=== PATIENT | female | born 1980 | race Caucasian/White ===

== ENCOUNTER 2020-05-22 14:59 | Emergency (ER) | payer MEDICAID, SELFPAY ==
[2020-05-22 15:01] VITALS: BP 118/65; PULSE 87; RESP 14; O2SAT 99
--- NOTE | 2020-05-22 15:37 | W.ED.GENAD ---
Discharge Plan Disposition Patient Disposition: HOME Condition: Good Discharge Details Chief Complaint: EarProblem Clinical Impression: Left otitis externa Primary Care Provider: Unknown,Unknown ED Provider: Skip Del Cid Home Meds and New Rx's Prescriptions: New Ciprodex 0.3-0.1 % drops,suspension 4 drp OT BID Qty: 7.5 RF: 0 levofloxacin [Levaquin] 750 mg tablet 750 mg PO DAILY 3 Days Qty: 3 RF: 0 Continued Vyvanse 70 mg Capsule 70 mg PO DAILY RF: 0 Discharge Instructions Instructions: Otitis Externa (ED) Additional Instructions: At this time he still have otitis externa but did not demonstrate any evidence of mastoiditis meningitis or other concerning etiology. Please continue to take Tylenol and ibuprofen as needed for pain. Please continue to use the Ciprodex drops, 4 drops to the affected ear twice daily. Please continue to take your Levaquin and take the additional 3 days that have been prescribed once you finish your original prescription. Please follow-up closely with your practice billing associate and primary care provider. If you notice any worsening of your symptoms, or any new symptoms such as pain in the bone behind your ear, stiff neck, vomiting, diarrhea, fever, chills, shortness of breath, chest pain, numbness, weakness, or fainting , please return immediately to the emergency department for reevaluation. Please follow up with your primary care provider as soon as possible for reassessment and reevaluation. As always, it was a pleasure participating in your medical care today. 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 Over 4 days ago she had spent some time swimming and in a hot tub, she developed a left-sided otitis externa, she was seen by her physician at her allergy center, who prescribed oral Levaquin and Ciprodex for topical treatment. She has been taking this for the last 4 days and has noted an improvement in the pain and swelling. She initially did have a fever but this is resolved. The pain is now notably tolerable especially with Tylenol and Aleve. Symptoms, although still present, are notably diminished from before. She did contact her PCP via a digital call, and it was recommended that she be evaluated in person for reassessment. Patient has no other complaints at this time. She denies headache posterior neck pain current fever chills chest pain or shortness of breath. She does admit to decreased hearing in the left ear. Physical exam demonstrates mild otitis externa, unable to visualize tympanic membrane secondary to swelling, no swelling of the ear, proptosis of the ear, signs of meningitis, or signs of mastoiditis. Signs and symptoms appear consistent with notably improving otitis externa. No indication for change in antibiotic treatment. Will give repeat bottle of Ciprodex, as well as 3 additional days of Levaquin. Discussed the importance of PCP follow-up. Discussed red flags which to return. With a clear demonstration of improvement of her symptoms with the current treatment modality no indication for change in treatment modality now. I have extensively reviewed the treatment plan and discharge instructions with the patient. I have addressed all patient concerns at this time. The patient was made aware of what symptoms to monitor for that would warrant a return to the emergency department. Discussed the plan with the patient, they demonstrate verbal understanding and agreement with our assessment and plan at this time. HPI General Date/Time Provider Initiated Documentation: 05/22/20 15:21. 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 Over 4 days ago she had spent some time swimming and in a hot tub, she developed a left-sided otitis externa, she was seen by her physician at her allergy center, who prescribed oral Levaquin and Ciprodex for topical treatment. She has been taking this for the last 4 days and has noted an improvement in the pain and swelling. She initially did have a fever but this is resolved. The pain is now notably tolerable especially with Tylenol and Aleve. Symptoms, although still present, are notably diminished from before. She did contact her PCP via a digital call, and it was recommended that she be evaluated in person for reassessment. Patient has no other complaints at this time. She denies headache posterior neck pain current fever chills chest pain or shortness of breath. She does admit to decreased hearing in the left ear. Related Data Home Medications Medication Instructions Recorded Confirmed Vyvanse 70 mg PO DAILY 05/22/20 05/22/20 ciprofloxacin-dexamethasone 4 drp OT BID #7.5 ml 05/22/20 [Ciprodex] levofloxacin [Levaquin] 750 mg PO DAILY 3 Days #3 tab 05/22/20 Previous Rx's Medication Instructions Recorded ciprofloxacin-dexamethasone 4 drp OT BID #7.5 ml 05/22/20 [Ciprodex] levofloxacin [Levaquin] 750 mg PO DAILY 3 Days #3 tab 05/22/20 Allergies Allergy/AdvReac Type Severity Reaction Status Date / Time amoxicillin Allergy Unverified 05/22/20 15:13 cefdinir Allergy Unverified 05/22/20 15:13 General Stated Complaint: EarProblem VISH: 4 Review of Systems All systems reviewed & are unremarkable except as noted in HPI and below PFSH Social History Smoking/Tobacco Use Status: Never Alcohol Intake: current Alcohol Intake frequency: 0-2 drinks per day Drug use: Never Substance use type: does not use Do you feel safe at home: Yes Do you feel safe in your relationship?: Yes Exam Narrative Exam Narrative: 1.Const: Well-nourished, Well-developed, appearing stated age 2.Eyes: PERRL, no conjunctival injection, and symmetrical lids. 3.ENT: Atraumatic external nose and ears. Moist MM. Neck: Symmetric, trachea midline, No thyromegaly. Patient demonstrates good movement of cervical neck. There is no nuchal rigidity, no nuchal tenderness. Patient is able to flex the neck without any difficulty or significant pain. Negative Kernig's and Brudzinski sign. Patient's right ear is normal, left ear demonstrates swelling of the external auditory canal, no swelling of the ear, no external rotation of the ear, no tenderness over the mastoid process, minimal tenderness on palpation of the tragus, no pain on palpation of the auricle. The external canal does demonstrate some goopy discharge. No blood. 4.CVS: +S1/S2, No murmurs or gallops. Peripheral pulses 2+ and equal in all extremities. Brisk capillary refill in all extremities. 5.RESP: Unlabored respiratory effort. Clear to auscultation bilaterally. No wheezes rales or rhonchi 6.GI: Soft, Nontender/Nondistended, No hepatosplenomegaly. No guarding or rebound. 7.MSK: Normocephalic/Atraumatic, Extremities w/o deformity or ttp No cyanosis or clubbing, Normal movement of all extremities 8.Skin: Warm, Dry. No rashes or lesions. 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 Sensation grossly intact, no focal neurologic deficits. 10.Psych: (AAO) x3. Appropriate mood and affect Course Vital Signs Vital signs: Vital Signs Pulse 87 05/22/20 15:01 Respiratory Rate 14 05/22/20 15:01 Blood Pressure 118/65 05/22/20 15:01 Pulse Oximetry 99 05/22/20 15:01 Pulse 87 05/22/20 15:01 Respiratory Rate 14 05/22/20 15:01 Respiratory Effort Non-Labored 05/22/20 15:16 Blood Pressure 118/65 05/22/20 15:01 Blood Pressure Position Sitting 05/22/20 15:01 Pulse Oximetry 99 05/22/20 15:01 Oxygen Delivery Method Room Air 05/22/20 15:01 Oxygen Flow Rate 0 05/22/20 15:01 Pain Level 5 05/22/20 15:16
[2020-05-22 15:51] VITALS: BP 102/59; PULSE 85; RESP 14; TEMP 36.8; O2SAT 100
== END 2020-05-22 16:03 | disposition home or self-care (01) ==
LOC: ER 16:04
PROVIDERS: Emergency Provider Student in an Organized Health Care Education/Training Program
DX: H60.332 Swimmer's ear, left ear (principal)
CPT/HCPCS: 99283

== ENCOUNTER 2020-07-14 10:41 | Outpatient (CLI) | payer MEDICAID, SELFPAY ==
[2020-07-17 12:41] LABS: Patient Race White; SARS-CoV-2 RNA Undetected (Undetected); SARS-CoV-2 Specimen Source Nasal
== END 2020-07-14 11:01 ==
PROVIDERS: PCP Internal Medicine; Visit Provider Internal Medicine
DX: Z20.828 Contact with and (suspected) exposure to other viral communicable diseases (principal)
CPT/HCPCS: U0003

== ENCOUNTER 2020-09-10 02:58 | Outpatient (CLI) | payer MEDICAID, SELFPAY ==
[2020-09-11 18:47] LABS: COVID-19 RT-PCR UVMMC Result Negative (Negative)
== END 2020-09-10 03:18 ==
PROVIDERS: PCP Internal Medicine; Visit Provider Obstetrics & Gynecology
DX: Z11.59 Encounter for screening for other viral diseases (principal); Z01.818 Encounter for other preprocedural examination
CPT/HCPCS: U0003

== ENCOUNTER 2021-01-15 10:00 | Outpatient (REF) | payer MEDICAID, SELFPAY ==
--- NOTE | 2021-01-15 09:30 | PAPFT_PTH ---
PATIENT: Emeli Ness LOC: [facility] U#:[id number] AGE/SX: 40/F ROOM: RE01/15/[address]: Olimpia Pineda : 1980 BED: DIS: 01/15/2021 SPEC #: [id number] RECD: 01/15/21 12:53 STATUS: WALTER RELuis Alfredo #: [id number] BROCK: 01/15/21 09:[address]: Olimpia Pineda DEPT: [facility] Cytology RECD BY: Deisy Nguyen ENTERED: 01/15/21 12:54 SP TYPE: PAPFT OTHR DR: Alexus Pinedo Tissues: 1 - CX/ENDOCX FOR PAP SMEARS Procedures: PAP THIN PREP/UVM Screening HPV DNA PROBE Comments: [id number]
[2021-01-16 14:54] LABS: Chlamydia Result Negative (Negative); GC Result Negative (Negative)
== END 2021-01-15 10:01 | disposition home or self-care (01) ==
LOC: LBN 10:00
PROVIDERS: PCP Internal Medicine; Visit Provider Obstetrics & Gynecology Gynecology
DX: Z11.3 Encounter for screening for infections with a predominantly sexual mode of transmission (principal); Z12.4 Encounter for screening for malignant neoplasm of cervix; Z11.51 Encounter for screening for human papillomavirus (HPV)
CPT/HCPCS: 87491; 87591; 88142; 87624

== ENCOUNTER 2021-03-15 15:29 | Emergency (ER) | payer MEDICAID, SELFPAY | END 2021-03-15 15:48 | disposition LWBS | LOC: ER 15:56 | DX: Z53.21 Procedure and treatment not carried out due to patient leaving prior to being seen by health care provider (principal) ==

== ENCOUNTER 2021-08-20 02:37 | Outpatient (CLI) | payer MEDICAID, SELFPAY ==
[2021-08-20 10:59] LABS: Bilirubin Negative (Negative); Blood Negative (Negative); Clarity Cloudy (Clear); Glucose Negative (Negative); Ketones Negative (Negative); Leukocyte Esterase Negative (Negative); Nitrite Negative (Negative); Urobilinogen 0.2 EU/dL (Up TO 0.2); pH 8.5 (5-8)
[2021-08-20 12:07] LABS: Creatine Kinase 112 U/L (26-192)
[2021-08-20 12:12] LABS: C-Reactive Protein < 0.05 mg/dL (0.0-0.3)
[2021-08-21 18:01] LABS: Rheumatoid Factor <8.6 IU/mL (<12.0)
[2021-08-22 11:39] LABS: Scl 70 Antibodies, IgG <0.2 U
[2021-08-24 09:12] LABS: Cyclic Citrullinated Peptide <2.5 U/mL (<5.0)
[2021-08-24 15:53] LABS: ANA Interpretation Negative (Negative)
== END 2021-08-20 02:38 | disposition home or self-care (01) ==
LOC: LBO 02:38
DX: I73.00 Raynaud's syndrome without gangrene (principal); M25.50 Pain in unspecified joint
CPT/HCPCS: 36415; 82550; 86200; 81003; 86038; 86140; 86235; 86431

== ENCOUNTER 2021-08-25 12:39 | Outpatient (CLI) | payer MEDICAID, SELFPAY ==
[2021-08-27 13:40] LABS: RNP Ab, IgG 0.8 Units (<20.0); SS-A Antibody 0.8 Units (<20.0); Sm (Smith) Ab, IgG 0.7 Units (<20.0)
== END 2021-08-25 12:40 | disposition home or self-care (01) ==
LOC: LBO 12:39
PROVIDERS: Visit Provider Student in an Organized Health Care Education/Training Program
DX: I73.00 Raynaud's syndrome without gangrene (principal); M25.59 Pain in other specified joint
CPT/HCPCS: 86235

== ENCOUNTER 2022-04-06 16:40 | Outpatient (REF) | payer MEDICAID, SELFPAY ==
--- NOTE | 2022-04-06 15:30 | PAPFT_PTH ---
PATIENT: Emeli Ness LOC: [facility] U#:[id number] AGE/SX: 41/F ROOM: RE04/06/[address]: Mckenzie Burrell MD : 1980 BED: DIS: 04/06/2022 SPEC #: [id number] RECD: 04/06/22 18:39 STATUS: WALTER REQ #: [id number] BROCK: 04/06/22 15:[address]: Mckenzie Burrell DEPT: [facility] Cytology RECD BY: Deisy Nguyen ENTERED: 04/06/22 18:39 SP TYPE: PAPFT OT DR: Senait Local Tissues: 1 - CX/ENDOCX FOR PAP SMEARS Procedures: PAP THIN PREP/UVM Screening HPV DNA PROBE Comments: [id number] (CHLAMYDIA/GC)
[2022-04-07 16:31] LABS: Chlamydia Result Negative (Negative); GC Result Negative (Negative)
== END 2022-04-06 16:41 | disposition home or self-care (01) ==
LOC: LBN 16:40
PROVIDERS: Visit Provider Obstetrics & Gynecology
DX: Z11.4 Encounter for screening for human immunodeficiency virus [HIV] (principal); Z12.4 Encounter for screening for malignant neoplasm of cervix
CPT/HCPCS: 87491; 87591; 88142; 87624

== ENCOUNTER 2022-04-27 03:30 | Outpatient (CLI) | payer MEDICAID, SELFPAY ==
[2022-04-27 12:04] LABS: ALT 18 U/L (14-59); AST 15 U/L (15-37); Albumin 3.7 g/dL (3.4-5.0); Alkaline Phosphatase 35 U/L (46-116); Anion Gap 9.3 mmol/L (3-11); BUN 14 mg/dL (7-18); Bilirubin, Total 0.4 mg/dL (0.2-1.0); CO2 26.7 mmol/L (21.0-32.0); CREATININE 0.7 mg/dL (0.55-1.02); Calcium 8.5 mg/dL (8.5-10.1); Chloride 103 mmol/L (98-107); Glucose 93 mg/dL (74-106); Magnesium 1.9 mg/dL (1.8-2.4); Potassium 3.8 mmol/L (3.5-5.1); Sodium 139 mmol/L (136-145); TSH (W/Ref FT4) 0.77 uIU/mL (0.36-3.74); Total Protein 6.5 g/dL (6.4-8.2)
== END 2022-04-27 03:31 | disposition home or self-care (01) ==
LOC: LBO 03:30
PROVIDERS: Visit Provider Student in an Organized Health Care Education/Training Program
DX: M24.542 Contracture, left hand (principal)
CPT/HCPCS: 36415; 80053; 83735; 84443

== ENCOUNTER → 2022-05-20 04:11 | Outpatient (CLI) | payer MEDICAID, SELFPAY ==
--- NOTE | 2022-05-20 06:45 | DI.US_ITS ---
Exam(s) US PELVIS TRANSVAGINAL EXAM: US PELVIS TRANSVAGINAL CLINICAL HISTORY: screening cervical adenoma malignum,ovarian ca, Q85.8 TECHNIQUE: Ultrasound of the pelvis was performed both transabdominal and transvaginal. COMPARISON: No exams were available for comparison FINDINGS: UTERUS: There is an IUD in satisfactory position in the endometrial canal. Measures 6.7 cm length x 3.9 cm AP x 5.5 cm wide. There are no uterine fibroids. Endometrial thickness measures 3.4 mm. There is no fluid in the endometrial canal. CERVIX: There are multiple nabothian cysts, these ranging up to 1 cm size RIGHT OVARY: Measures 3.3 x 1.5 x 3.1 cm Contains a 1.8 x 0.9 cm probable involuting corpus luteal cyst. LEFT OVARY: Measures 3 x 1.1 x 2.7 cm No significant cysts nor masses evident in the left ovary. CUL-DE-SAC: No free fluid evident. IMPRESSION: 1. IUD is in satisfactory position in the endometrial canal. No abnormal fluid in the endometrial ca nal. 2. Multiple nabothian cysts are noted in the cervix ranging up to 10 x 8 millimeters. 3. Corpus luteal cyst right ovary. Left ovary unremarkable. No free fluid DATA REPOSITORY:
== END ==
PROVIDERS: PCP Student in an Organized Health Care Education/Training Program; Visit Provider Obstetrics & Gynecology
DX: Z97.5 Presence of (intrauterine) contraceptive device; N88.8 Other specified noninflammatory disorders of cervix uteri; N83.11 Corpus luteum cyst of right ovary; Z12.73 Encounter for screening for malignant neoplasm of ovary; Q85.8 Other phakomatoses, not elsewhere classified
CPT/HCPCS: 76830; 76856

== ENCOUNTER → 2022-07-22 02:21 | Outpatient (CLI) | payer MEDICAID, SELFPAY ==
--- NOTE | 2022-07-22 08:30 | DI.MRI_ITS ---
Exam(s) MR LOWER JOINT LT WO EXAM: MR LOWER JOINT LT WO CLINICAL HISTORY: HAMSTRING TENDINITIS OF RT THIGH, M76.891. TECHNIQUE: Multiplanar multisequence MRI was performed. COMPARISON: No exams were available for comparison FINDINGS: MR examination of the hip was performed according to the usual protocol. Internal pelvic structures are unremarkable. No evidence of adenopathy. No bony signal abnormality seen involving the hips or pelvis. The requisition raises the possibility of hamstring tendinitis on the right. The hamstring attachmen ts and proximal hamstring tendons show normal signal and no evidence of inflammation or tear. No flu id collection identified. No adjacent marrow signal abnormality. No other significant muscular or tendinous signal abnormality in the region of the right hip or pelvi s. IMPRESSION: Negative right hip MRI. No evidence of hamstring tendinosis or tear. DATA REPOSITORY:
== END ==
PROVIDERS: PCP Student in an Organized Health Care Education/Training Program; Visit Provider Family Medicine
DX: M76.891 Other specified enthesopathies of right lower limb, excluding foot (principal)
CPT/HCPCS: 73721

== ENCOUNTER 2022-08-19 16:45 | Outpatient (REF) | payer MEDICAID, SELFPAY ==
[2022-08-23 12:33] LABS: Chlamydia Result Negative (Negative); GC Result Negative (Negative)
== END 2022-08-19 16:46 | disposition home or self-care (01) ==
LOC: LBN 16:45
PROVIDERS: PCP Student in an Organized Health Care Education/Training Program; Visit Provider Advanced Practice Midwife
DX: Z11.3 Encounter for screening for infections with a predominantly sexual mode of transmission (principal)
CPT/HCPCS: 87491; 87591; 87480; 87510; 87660

== ENCOUNTER 2022-10-21 15:50 | Outpatient (REF) | payer MEDICAID, SELFPAY ==
[2022-10-22 13:33] LABS: Chlamydia Result Negative (Negative); GC Result Negative (Negative)
== END 2022-10-21 15:51 | disposition home or self-care (01) ==
LOC: LBN 15:50
PROVIDERS: PCP Student in an Organized Health Care Education/Training Program; Visit Provider Advanced Practice Midwife
DX: Z11.3 Encounter for screening for infections with a predominantly sexual mode of transmission (principal)
CPT/HCPCS: 87491; 87591

== ENCOUNTER 2023-05-24 13:57 | Outpatient (REF) | payer MEDICAID, SELFPAY ==
--- NOTE | 2023-05-24 14:00 | PAPFT_PTH ---
PATIENT: Emeli Ness LOC: [facility] U#:[id number] AGE/SX: 42/F ROOM: RE05/24/[address]: Mckenzie Burrell MD : 1980 BED: DIS: 05/24/2023 SPEC #: [id number] RECD: 05/25/23 17:32 STATUS: WALTER RELuis Alfredo #: [id number] BROCK: 05/24/23 14:[address]: Mckenzie Burrell DEPT: [facility] Cytology RECD BY: Deisy Nguyen ENTERED: 05/25/23 17:32 SP TYPE: PAPFT OTHR DR: MARCUS JAVIER MD Tissues: 1 - CX/ENDOCX FOR PAP SMEARS Procedures: PAP THIN PREP/UVM Screening HPV DNA PROBE Comments: [id number] (CHLAMYDIA/GC)
[2023-05-26 15:36] LABS: Chlamydia Result Negative (Negative); GC Result Negative (Negative)
== END 2023-05-24 13:58 | disposition home or self-care (01) ==
LOC: LBN 13:57
PROVIDERS: PCP Student in an Organized Health Care Education/Training Program; Visit Provider Obstetrics & Gynecology
DX: N94.9 Unspecified condition associated with female genital organs and menstrual cycle (principal)
CPT/HCPCS: 87491; 87591; 88142; 87480; 87510; 87624; 87660

== ENCOUNTER 2023-05-24 16:02 | Outpatient (CLI) | payer MEDICAID, SELFPAY ==
[2023-05-25 10:06] LABS: HBs Antibody, Qual Negative (See Note); HBs Antibody, Quant <3.1 mIU/mL (See Note); Hepatitis B Core Antibody Negative (Negative); Hepatitis B surface Ag Negative (Negative); Hepatitis C Ab w Rflx HCV PCR Negative (Negative)
[2023-05-25 10:13] LABS: HIV-1/2 Ag & Ab Screen Negative (Negative)
[2023-05-25 10:20] LABS: Syphilis Serology (RPR) Negative (Negative)
== END 2023-05-24 16:03 | disposition home or self-care (01) ==
LOC: LBO 16:02
PROVIDERS: PCP Student in an Organized Health Care Education/Training Program; Visit Provider Obstetrics & Gynecology
DX: Z11.3 Encounter for screening for infections with a predominantly sexual mode of transmission (principal); Z11.4 Encounter for screening for human immunodeficiency virus [HIV]; Z11.59 Encounter for screening for other viral diseases
CPT/HCPCS: 36415; 86704; 86706; 86803; 87340; 87389; 86592

== ENCOUNTER → 2023-06-03 00:22 | Outpatient (CLI) | payer MEDICAID, SELFPAY ==
--- NOTE | 2023-06-03 07:15 | DI.US_ITS ---
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 TECHNIQUE: Transabdominal and transvaginal pelvic ultrasound was performed using standard protocol. COMPARISON: US US PELVIS TRANSVAGINAL from 05/20/2022 US US BREAST LIMITED RIGHT from 02/17/2023 FINDINGS: UTERUS: Position: Anteverted. Size: 6.1 long by 3 AP by 4.6 transverse cm Endometrium: 0.4 cm. Normal for patient's menstrual status. There is an IUD which is in good position . Myometrium: Unremarkable. Cervix: There again seen cysts within the cervix. The largest measures 0.8 x 0.6 cm. One of the sma ller cyst does appear to have some internal soft tissue versus artifact. This cyst measures 0.5 x 0. 3 cm. No internal blood flow is seen. OVARIES: Right: 3 x 1.7 x 3 cm Cyst or mass: No suspicious cystic or solid masses. Left: 2.3 x 1.2 x 2.3 cm Cyst or mass: No suspicious cystic or solid masses. DOPPLER: Color: Symmetric and uniform flow to both ovaries. CUL-DE-SAC: Free fluid: None. Other: None. IMPRESSION: 1. Cysts are again seen in the cervix. There does appear to be a small complex cyst in the cervix ve rsus artifact. MRI should be considered for further evaluation. 2. Normal-appearing uterus with endometrial stripe within normal limits. IUD is in good position. 3. Unremarkable bilateral ovaries. Unexpected findings DATA REPOSITORY:
== END ==
PROVIDERS: PCP Student in an Organized Health Care Education/Training Program; Visit Provider Obstetrics & Gynecology
DX: Q85.89 Other phakomatoses, not elsewhere classified (principal)
CPT/HCPCS: 76830; 76856

== ENCOUNTER → 2023-06-06 02:56 | Outpatient (CLI) | payer MEDICAID, SELFPAY ==
--- NOTE | 2023-06-06 07:30 | DI.US_ITS ---
Exam(s) US BREAST RT LIMITED MG MAMMO DIAGNOSTIC BI EXAM: MG MAMMO DIAGNOSTIC BI CLINICAL HISTORY: breast lump,N63.10. COMPARISON: US US BREAST RT LIMITED from 06/06/2023 TECHNIQUE: Craniocaudal and mediolateral oblique Full Field Digital Mammography views of both breast s with Computer Aided Diagnosis followed by Tomosynthesis and right breast ultrasound. FINDINGS: Mammography/Tomosynthesis: Masses/Architectural Distortion: None seen. Microcalcifications: No suspicious pleomorphic-type are seen. Skin Thickening/Nipple Retraction: None. Right breast US: Echotexture: Normal appearance of the glandular tissue. Shadowing: No suspicious foci. Cyst: None 2 adjacent small cysts measuring in in aggregate 11 x 9 x 14 millimeters. Solid lesions: No suspicious masses seen. Ductal dilation: None. IMPRESSION: 1. No evidence of malignancy is noted. 2. Unless there is more urgent need, follow-up screening mammography is recommended, as per [employer] guidelines. BI-RADS Category 2 - Benign Findings Breast Density - Category D - Extremely dense Breast density category C or D implies that the patient has dense breast tissue. Dense breast tissue is very common and is not abnormal but dense breast tissue can make it harder to find cancer on a ma mmogram. Also, dense breast tissue may increase their breast cancer risk. This information about the result of the mammogram report was provided to the patient to raise their awareness. Use this report when you speak with the patient about their risks for breast cancer, which includes their family hist ory. At that time, you may recommend for more screening tests (Ultrasound or MRI) as they might be us eful based on their risk. A negative radiographic report should not delay biopsy if a dominant or clinically suspicious mass is present. Up to ten percent of cancers are not identified on mammography. A negative report may reinforce clinical impression. Adenosis and dense breasts may obscure an underlying neoplasm. False positive reports average 6 to 10%. Patient will receive a letter notifying them of these results.
== END ==
PROVIDERS: PCP Student in an Organized Health Care Education/Training Program; Visit Provider Obstetrics & Gynecology
DX: Z12.31 Encounter for screening mammogram for malignant neoplasm of breast; R92.8 Other abnormal and inconclusive findings on diagnostic imaging of breast
CPT/HCPCS: 76642; 77062; 77066; G0279

== ENCOUNTER 2024-06-07 12:25 | Outpatient (REF) | payer MEDICAID, SELFPAY ==
--- NOTE | 2024-06-07 12:30 | PAPFT_PTH ---
PATIENT: Emeli Ness LOC: [facility] U#:[id number] AGE/SX: 43/F ROOM: RE06/07/[address]: Mckenzie Burrell MD : 1980 BED: DIS: 06/07/2024 SPEC #: [id number] RECD: 06/07/24 17:38 STATUS: WALTER REQ #: [id number] BROCK: 06/07/24 12:[address]: Mckenzie Burrell DEPT: [facility] Cytology RECD BY: Deisy Nguyen ENTERED: 06/07/24 17:38 SP TYPE: PAPFT OTHR DR: MARCUS JAVIER MD Tissues: 1 - CX/ENDOCX FOR PAP SMEARS Procedures: PAP THIN PREP/UVM Screening HPV DNA PROBE Comments: [id number] (HPV 16 & 18/45) (CHLAMYDIA/GC)
[2024-06-08 11:56] LABS: Chlamydia Result Negative (Negative); GC Result Negative (Negative)
== END 2024-06-07 12:26 | disposition home or self-care (01) ==
LOC: LBN 12:25
PROVIDERS: PCP Student in an Organized Health Care Education/Training Program; Visit Provider Obstetrics & Gynecology
DX: Z12.4 Encounter for screening for malignant neoplasm of cervix (principal)
CPT/HCPCS: 87491; 87591; 88142; 87624

== ENCOUNTER 2024-06-19 02:06 | Outpatient (CLI) | payer MEDICAID, SELFPAY ==
--- NOTE | 2024-06-19 07:00 | DI.US_ITS ---
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 COMPARISON: US US PELVIS TRANSVAGINAL from 06/03/2023 FINDINGS: UTERUS: Anteverted. 3 x 3.7 x 5.0 cm Endometrium: 3-4 mm. IUD in position. Myometrium: Unremarkable. Cervix: 10 millimeter nabothian cyst. Adjacent 5 millimeter cyst. No visible mass. OVARIES: Right: Cyst or mass: 2.9 centimeter dominant follicle. Left: Cyst or mass: None. DOPPLER: Color: Symmetric and uniform flow to both ovaries. No hyperemia. CUL-DE-SAC: Free fluid: None. IMPRESSION: 1. Normal-appearing uterus with endometrial stripe within normal limits. Nabothian cysts. No suspic ious cervical mass identified. 2. Unremarkable bilateral ovaries. DATA REPOSITORY:
== END 2024-06-19 02:26 ==
LOC: DI 02:06
PROVIDERS: PCP Student in an Organized Health Care Education/Training Program; Visit Provider Obstetrics & Gynecology
DX: Q85.89 Other phakomatoses, not elsewhere classified (principal)
CPT/HCPCS: 76830; 76856

== ENCOUNTER 2024-07-17 14:07 | Outpatient (REF) | payer MEDICAID, SELFPAY ==
--- NOTE | 2024-07-17 13:45 | ENDOMET_PTH ---
PATIENT: Emeli Ness LOC: [facility] U#:[id number] AGE/SX: 44/F ROOM: RE07/17/[address]: Mckenzie Burrell MD : 1980 BED: DIS: 07/17/2024 SPEC #: [id number] RECD: 07/17/24 17:56 STATUS: WALTER REQ #: [id number] BROCK: 07/17/24 13:[address]: Mckenzie Burrell DEPT: Surgical Specimen RECD BY: Deisy Nguyen ENTERED: 07/17/24 17:57 SP TYPE: Endomet OTHR DR: MARCUS JAVIER MD Tissues: 1 - ENDOMETRIUM BX/CURRETTE Procedures: GROSS AND MICRO LEVEL 4 Comments: [id number]
== END 2024-07-17 14:08 | disposition home or self-care (01) ==
LOC: LBN 14:07
PROVIDERS: PCP Student in an Organized Health Care Education/Training Program; Visit Provider Obstetrics & Gynecology
DX: Q85.81 PTEN hamartoma tumor syndrome (principal); Z30.432 Encounter for removal of intrauterine contraceptive device
CPT/HCPCS: 88305

== ENCOUNTER 2024-08-08 09:25 | Outpatient (REF) | payer MEDICAID, SELFPAY | END 2024-08-08 09:26 | disposition home or self-care (01) | LOC: LBN 09:25 | PROVIDERS: PCP Student in an Organized Health Care Education/Training Program; Visit Provider Nurse Practitioner Women's Health | DX: R30.0 Dysuria (principal) | CPT/HCPCS: 87077; 87086; 87186 ==

== ENCOUNTER 2024-09-21 18:36 | Emergency (ER) | payer MEDICAID, SELFPAY ==
[2024-09-21 18:39] VITALS: BP 124/54; PULSE 83; RESP 14; TEMP 36.8; O2SAT 98
[2024-09-21 19:15] LABS: Abs Immature Grans 0.02 10^3/uL (0.0-0.06); Absolute Basophil Count 0.08 10^3/uL (0.0-0.2); Absolute Eosinophil Count 0.21 10^3/uL (0.0-0.7); Absolute Lymphocyte Count 2.15 10^3/uL (1.2-3.4); Absolute Monocyte Count 0.51 10^3/uL (0.1-0.8); Absolute Neutrophil Count 5.28 10^3/uL (1.2-6.7); Eosinophils % 2.5 %; HCT 39.4 % (36.0-46.0); HGB 13.1 g/dL (11.2-15.7); Immature Grans % 0.2 %; Lymphocytes % 26.1 %; MCH 30.7 pg (27.0-33.0); MCHC 33.2 % (32.0-36.0); MCV 92 fL (80-95); MPV 9.3 fL (8.0-11.0); Monocytes % 6.2 %; Platelet Count 318 10^3/uL (130-400); RBC 4.27 10^6/uL (3.93-5.22); RDW 12.8 % (11.7-14.6); WBC 8.25 10^3/uL (4.4-10.8)
[2024-09-21 19:41] LABS: D-Dimer 1012 ng/mlFEU (<500)
[2024-09-21 19:43] LABS: ALT 32 U/L (14-59); AST 15 U/L (15-37); Albumin 3.9 g/dL (3.4-5.0); Alkaline Phosphatase 55 U/L (46-116); Anion Gap 6.6 mmol/L (3-11); BUN 13 mg/dL (7-18); Bilirubin, Total 0.17 mg/dL (0.2-1.0); CO2 32.4 mmol/L (21.0-32.0); CREATININE 0.8 mg/dL (0.55-1.02); Chloride 102 mmol/L (98-107); Estimated GFR 91.97 (mL/min/1.73m2); Glucose 130 mg/dL (74-106); Potassium 3.5 mmol/L (3.5-5.1); Sodium 141 mmol/L (136-145); Total Protein 7.4 g/dL (6.4-8.2)
[2024-09-21] MEDS: Apixaban 5 MG TAB 10 MG PO (20:49)
[2024-09-21 20:57] VITALS: BP 112/54; PULSE 72; RESP 18; O2SAT 100
--- NOTE | 2024-09-21 22:57 | W.ED.GENAD ---
Discharge Plan Disposition Patient Disposition: Home Discharge Details Clinical Impression: Calf pain Primary Care Provider: MARCUS BARLOW ED Provider: Deisy Anguiano Home Meds and New Rx's Prescriptions: New Eliquis 5 mg tablet 10 mg PO BID Qty: 10 0RF Continued levomefolate calcium [L-Methylfolate] 15 mg tablet 15 mg PO DAILY ascorbate calcium (vitamin C) 500 mg tablet 500 mg PO DAILY cholecalciferol (vitamin D3) 25 mcg (1,000 unit) capsule 25 mcg PO DAILY Vyvanse 30 mg capsule 30 mg PO DAILY Patient Comments: 04/06/22- pt reports taking around lunch Vyvanse 40 mg capsule 40 mg PO QAM Patient Comments: 08/19/22- pt takes 30 mg po at lunch and 40 mg po in the am nicotinamide 1 tspn sublingual .COMPLEX Rx Instructions: 1 tspn sublingually; 3 times per week. cyclobenzaprine 10 mg tablet 10 mg PO HS PRN Discharge Instructions Instructions: Taking oral medicines for blood clots, Deep vein thrombosis - Discharge instructions Additional Instructions: Ultrasound has been ordered for Tuesday, call first thing in the morning on Tuesday to schedule your ultrasound Take 10 mg of Eliquis daily until you have your ultrasound, I have spoken with your commissary clerk and they recommend taking Eliquis at this time Should you have worsening pain, shortness of breath, chest discomfort please return immediately for reassessment Referrals: MARCUS BARLOW MD [Primary Care Provider] - HPI General Date/Time Provider Initiated Documentation: 09/21/24 18:52. HPI Narrative: This 44-year-old female presents with left calf pain. She status post hysterectomy on 09/10/2024. Denies prior history of DVT. Denies any exogenous hormones. Denies chest pain or shortness of breath. States her symptoms started yesterday. Denies history of similar. Related Data Home Medications ?Medication ?Instructions ?Recorded ?Confirmed levomefolate calcium 15 mg tablet 15 mg PO DAILY 01/15/21 09/21/24 (L-Methylfolate) ascorbate calcium (vitamin C) 500 500 mg PO DAILY 04/06/22 09/21/24 mg tablet cholecalciferol (vitamin D3) 25 25 mcg PO DAILY 04/06/2225 mcg (1,000 unit) capsule lisdexamfetamine 30 mg capsule 30 mg PO DAILY 04/06/22 09/21/24 (Vyvanse) lisdexamfetamine 40 mg capsule 40 mg PO QAM 08/19/22 09/21/24 (Vyvanse) nicotinamide 1 tspn sublingual .COMPLEX 10/21/22 09/21/24 cyclobenzaprine 10 mg tablet 10 mg PO HS PRN 06/07/24 09/21/24 apixaban 5 mg tablet (Eliquis) 10 mg (2 x 5 mg) PO BID #10 tabs 09/21/24 Previous Rx's ?Medication ?Instructions ?Recorded apixaban 5 mg tablet (Eliquis) 10 mg (2 x 5 mg) PO BID #10 tabs 09/21/24 Allergies Allergy/AdvReac Type Severity Reaction Status Date / Time amoxicillin Allergy Other (See Unverified 09/21/24 18:45 Comment) cefdinir Allergy Other (See Unverified 09/21/24 18:45 Comment) gluten Allergy Hives Uncoded 09/21/24 18:45 honey bee Allergy Hives Uncoded 09/21/24 18:45 General Stated Complaint: Orthopedic VISH: 4 Exam Narrative Exam Narrative: This 44-year-old female presents with left calf pain, she has mild tenderness to her left calf without any significant visible swelling, distal pulses are intact, no respiratory distress no rashes or lesions Course Vital Signs Vital signs: Vital Signs Temperature 36.8 C 09/21/24 18:39 Pulse 83 09/21/24 18:39 Respiratory Rate 14 09/21/24 18:39 Blood Pressure 124/54 L 09/21/24 18:39 Pulse Oximetry 98 09/21/24 18:39 Temperature 36.8 C 09/21/24 18:39 Temperature Source Oral 09/21/24 18:39 Pulse 72 09/21/24 20:57 Respiratory Rate 18 09/21/24 20:57 Blood Pressure 112/54 L 09/21/24 20:57 Blood Pressure Position Sitting 09/21/24 18:39 Pulse Oximetry 100 09/21/24 20:57 Oxygen Delivery Method Room Air 09/21/24 18:39 Oxygen Flow Rate 0 09/21/24 18:39 Pain Level 2 09/21/24 18:39 Lab/Test Results Lab/Test Results: Laboratory Tests Range/Units 09/21/24 19:10 WBC (4.4-10.8) 10^3/uL 8.25 RBC (3.93-5.22) 10^6/uL 4.27 Hgb (11.2-15.7) g/dL 13.1 Hct (36.0-46.0) % 39.4 MCV (80-95) fL 92 MCH (27.0-33.0) pg 30.7 MCHC (32.0-36.0) % 33.2 RDW (11.7-14.6) % 12.8 Plt Count (130-400) 10^3/uL 318 MPV (8.0-11.0) fL 9.3 Immature Gran % % 0.2 Neutrophils % % 64.0 Lymphocytes % % 26.1 Monocytes % % 6.2 Eosinophils % % 2.5 Basophils % % 1.0 Nucleated RBC % (0.0-0.3) % 0.0 Absolute Neutrophils (1.2-6.7) 10^3/uL 5.28 Absolute Lymphocytes (1.2-3.4) 10^3/uL 2.15 Absolute Monocytes (0.1-0.8) 10^3/uL 0.51 Absolute Eosinophils (0.0-0.7) 10^3/uL 0.21 Absolute Basophils (0.0-0.2) 10^3/uL 0.08 D-Dimer (<500) ng/mlFEU 1012 H Sodium (136-145) mmol/L 141 Potassium (3.5-5.1) mmol/L 3.5 Chloride (98-107) mmol/L 102 Carbon Dioxide (21.0-32.0) mmol/L 32.4 H Anion Gap (3-11) mmol/L 6.6 BUN (7-18) mg/dL 13 Creatinine (0.55-1.02) mg/dL 0.8 Est GFR (CKD-EPI 2020) (mL/min/1.73m2) 91.97 Glucose (74-106) mg/dL 130 H Calcium (8.5-10.1) mg/dL 9.0 Total Bilirubin (0.2-1.0) mg/dL 0.17 L AST (15-37) U/L 15 ALT (14-59) U/L 32 Alkaline Phosphatase (46-116) U/L 55 Total Protein (6.4-8.2) g/dL 7.4 Albumin (3.4-5.0) g/dL 3.9 Medical Decision Making 44-year-old female presenting with left calf pain post da Gus hysterectomy. Unfortunately we do not have ultrasound services at this time and therefore D-dimer and basic labs are ordered. D-dimer elevated at 1000. This could certainly be a postoperative in nature however given the calf pain and recent surgery I will start Eliquis. I did discuss the appropriateness of anticoagulation post hysterectomy with Dr. Maldonado. 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 She feels like 10 mg of Eliquis twice daily until patient has ultrasound on Tuesday is reasonable. Again there is no evidence of PE and patient is comfortable plan at this time. Quality:SDOH Health Related Social Needs: No Data to Display PFSH All Active Problems (Updated 09/21/24 @ 20:38 by NATALI Nance) Calf pain (Acute) Breast lump (Acute) Benign polyp of duodenum (Acute) Varicose vein of leg (Acute) 03/2009. 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 Nl pap since. Hx of section Family History (Updated 10/21/22 @ 13:34 by Sarah Conde CNM) Self Family history of Peutz-Jeghers syndrome Son Family history of Peutz-Jeghers syndrome Son Family history of Peutz-Jeghers syndrome Sister Family history of Peutz-Jeghers syndrome Thyroid cancer Thymus cancer Uterine cervix cancer Father , Lung cancer. Never smoked. Family history of Peutz-Jeghers syndrome Family hx-testicular malignancy Testicular dysplasia cancer Sister Melanoma Paternal Grandmother Pancreatic cancer Uterine cervix cancer Brother Family history of Peutz-Jeghers syndrome Sister Family history of Peutz-Jeghers syndrome Basal cell carcinoma of skin Mother Squamous cell skin cancer Depression Paternal Cousin Family history of Peutz-Jeghers syndrome Colon polyps Social History (Updated 01/15/21 @ 11:57 by Olimpia Pineda MD) Smoking/Tobacco Use Status: Never Quit status: quit date established Smoking risk assessment performed?: Yes Alcohol Intake: current Alcohol Intake frequency: 0-2 drinks per day Drug use: Never Substance use type: does not use Household members: children and other Details: legally . 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 Female Reproductive History Menstrual control method: progestin IUCD History History 2 Para 2 Hx # Term Pregnancies Multiple births Hx # Pregnancies Ectopic pregnancies AB induced Hx Number of Living Children 2 AB spontaneous Past Pregnancies Del. Date GA/Weeks # Preg Succ Route Wgt Sex Labor Lgth Anesthesia Location [facility] 05/11/07 40 No Yes vaginal 3486.991 g Male [place] 12/25/12 37 No Yes 2948.35 g Male Delivery Date: 12/25/12 Last Updated by: Mckenzie Burrell MD Placenta previa and ?vasa previa. T uterine incision
== END 2024-09-21 20:57 | disposition home or self-care (01) ==
PROVIDERS: Emergency Provider Physician Assistant; PCP Student in an Organized Health Care Education/Training Program
DX: M79.662 Pain in left lower leg (principal); R79.89 Other specified abnormal findings of blood chemistry; Z98.890 Other specified postprocedural states
CPT/HCPCS: 80053; 99283; 85025; 85379

== ENCOUNTER 2024-09-24 09:56 | Outpatient (CLI) | payer MEDICAID, SELFPAY ==
--- NOTE | 2024-09-24 | DI.US_ITS ---
Exam(s) US LOWER EXTREMITY VENOUS LT EXAM: US LOWER EXTREMITY VENOUS LT CLINICAL HISTORY: POST OP, LT CALF PAIN TECHNIQUE: Left lower extremity venous ultrasound performed using grayscale, color-flow, and spectra l Doppler analysis. COMPARISON: No exams were available for comparison FINDINGS: The left common femoral, femoral and popliteal veins demonstrate normal compressibility, augmentation , and color Doppler. The posterior tibial and peroneal veins are patent. The saphenofemoral junction is unremarkable. There is no evidence of a Norton cyst. The soft tissues are unremarkable. IMPRESSION: No evidence of a left lower extremity DVT. DATA REPOSITORY:
== END 2024-09-24 10:16 ==
LOC: DI 09:57
PROVIDERS: PCP Student in an Organized Health Care Education/Training Program; Visit Provider Physician Assistant
DX: M79.662 Pain in left lower leg (principal); Z98.890 Other specified postprocedural states
CPT/HCPCS: 93971

== ENCOUNTER 2025-02-06 20:38 | Emergency (ER) | payer MEDICAID, SELFPAY ==
[2025-02-06 20:42] VITALS: BP 111/55; PULSE 87; RESP 16; TEMP 36.9; O2SAT 98
[2025-02-06] MEDS: Diph,Pertuss(Acell),Tet Vac/Pf 0.5 ML SYR IM (21:34)
[2025-02-06 21:45] VITALS: RESP 18
--- NOTE | 2025-02-06 21:48 | W.ED.GENAD ---
Discharge Plan Disposition Patient Disposition: Home Condition: Stable Discharge Details Clinical Impression: Finger laceration Primary Care Provider: MARCUS BARLOW ED Provider: Carlota Guillen Home Meds and New Rx's Prescriptions: No Action levomefolate calcium [L-Methylfolate] 15 mg tablet 15 mg PO DAILY ascorbate calcium (vitamin C) 500 mg tablet 500 mg PO DAILY cholecalciferol (vitamin D3) 25 mcg (1,000 unit) capsule 25 mcg PO DAILY Vyvanse 30 mg capsule 30 mg PO DAILY Patient Comments: 04/06/22- pt reports taking around lunch Vyvanse 40 mg capsule 40 mg PO QAM Patient Comments: 08/19/22- pt takes 30 mg po at lunch and 40 mg po in the am nicotinamide 1 tspn sublingual .COMPLEX Rx Instructions: 1 tspn sublingually; 3 times per week. Discharge Instructions Instructions: Laceration Repair With Glue ED, Tdap (Tetanus, Diphtheria, Pertussis) Vaccine CDC Vaccine Information Statement (VIS) Referrals: MARCUS BARLOW MD [Primary Care Provider] - Discharge Data Discharge Physician: Carlota Guillen [facility] General Date/Time Provider Initiated Documentation: 02/06/25 20:43. HPI Narrative: 44-year-old right handed female presents for evaluation of finger laceration. Patient states that she was cutting an onion for dinner tonight when she accidentally cut the tip of her left third finger. Bleeding is well-controlled. Unknown last tetanus. No other injuries. Related Data Home Medications ?Medication ?Instructions ?Recorded ?Confirmed levomefolate calcium 15 mg tablet 15 mg PO DAILY 01/15/21 02/06/25 (L-Methylfolate) ascorbate calcium (vitamin C) 500 500 mg PO DAILY 04/06/22 02/06/25 mg tablet cholecalciferol (vitamin D3) 25 25 mcg PO DAILY 04/06/22 02/06/25 mcg (1,000 unit) capsule lisdexamfetamine 30 mg capsule 30 mg PO DAILY 04/06/22 02/06/25 (Vyvanse) lisdexamfetamine 40 mg capsule 40 mg PO QAM 08/19/22 02/06/25 (Vyvanse) nicotinamide 1 tspn sublingual .COMPLEX 10/21/22 02/06/25 Allergies Allergy/AdvReac Type Severity Reaction Status Date / Time amoxicillin Allergy Other (See Unverified 02/06/25 20:45 Comment) cefdinir Allergy Other (See Unverified 02/06/25 20:45 Comment) gluten Allergy Hives Uncoded 02/06/25 20:45 honey bee Allergy Hives Uncoded 02/06/25 20:45 General Stated Complaint: Laceration VISH: 4 Review of Systems Narrative: Remainder of review of systems otherwise negative except for as noted in the HPI x 5. Exam Narrative Exam Narrative: General: non-toxic, no respiratory distress, comfortable HEENT: normocephalic, atraumatic, lids and lashes normal, PERRL, EOMI, anicteric sclera, no conjunctival injection, moist oral mucosa Musculoskeletal: 1 cm V-shaped laceration to tip of left third finger adjacent to nail bed, no nailbed injury, full strength to flexion at DIP, PIP, MCP, 2+ radial pulses, sensation tact, otherwise full range of motion of arms and legs, no tenderness to palpation. no clubbing, cyanosis, or edema Neurologic: appropriate for age, strength normal Psych: alert and oriented Skin: As above, otherwise no petechiae, no lesions, warm and dry Course Vital Signs Vital signs: Vital Signs Temperature 36.9 C 02/06/25 20:42 Pulse 87 02/06/25 20:42 Respiratory Rate 16 02/06/25 20:42 Blood Pressure 111/55 L 02/06/25 20:42 Pulse Oximetry 98 02/06/25 20:42 Temperature 36.9 C 02/06/25 20:42 Pulse 87 02/06/25 20:42 Respiratory Rate 18 02/06/25 21:45 Blood Pressure 111/55 L 02/06/25 20:42 Pulse Oximetry 98 02/06/25 20:42 Procedure Laceration Laceration 1: Date of Procedure: 02/06/25 Time of procedure: 21:30 Site: other (Third finger) Side (If applicable): left Local anesthetic: Lidocaine 1% Amount of anesthesia used (mL): 3 Skin layer closed with: other (Prolene) Suture size: 5-0 Number of sutures:: 2 Complications: None Medical Decision Making 44-year-old female presents for evaluation of finger laceration. We discussed possibilities of wound care. Patient initially opted for surgical glue however then decided on suturing. 2 sutures were placed. Dressing applied by nursing. Tetanus was updated. Patient instructed on wound care. Quality:SDOH Health Related Social Needs: No Data to Display PFSH All Active Problems Finger laceration (Acute) Breast lump (Acute) Benign polyp of duodenum (Acute) Varicose vein of leg (Acute) 03/2009. 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 Nl pap since. Hx of section Family History Self Family history of Peutz-Jeghers syndrome Son Family history of Peutz-Jeghers syndrome Son Family history of Peutz-Jeghers syndrome Sister Family history of Peutz-Jeghers syndrome Thyroid cancer Thymus cancer Uterine cervix cancer Father , Lung cancer. Never smoked. Family history of Peutz-Jeghers syndrome Family hx-testicular malignancy Testicular dysplasia cancer Sister Melanoma Paternal Grandmother Pancreatic cancer Uterine cervix cancer Brother Family history of Peutz-Jeghers syndrome Sister Family history of Peutz-Jeghers syndrome Basal cell carcinoma of skin Mother Squamous cell skin cancer Depression Paternal Cousin Family history of Peutz-Jeghers syndrome Colon polyps Social History Smoking/Tobacco Use Status: Never Quit status: quit date established Smoking risk assessment performed?: Yes Alcohol Intake: current Alcohol Intake frequency: 0-2 drinks per day Drug use: Never Substance use type: does not use Household members: children and other Details: legally . 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 Female Reproductive History Menstrual control method: progestin IUCD History History 2 Para 2 Hx # Term Pregnancies Multiple births Hx # Pregnancies Ectopic pregnancies AB induced Hx Number of Living Children 2 AB spontaneous Past Pregnancies Del. Date GA/Weeks # Preg Succ Route Wgt Sex Labor Lgth Anesthesia Location [facility] 05/11/07 40 No Yes vaginal 3486.991 g Male [place] 12/25/12 37 No Yes 2948.35 g Male Delivery Date: 12/25/12 Last Updated by: Mckenzie Burrell MD Placenta previa and ?vasa previa. T uterine incision
== END 2025-02-06 21:46 | disposition home or self-care (01) ==
PROVIDERS: Emergency Provider Emergency Medicine Emergency Medical Services; PCP Student in an Organized Health Care Education/Training Program
DX: S61.213A Laceration without foreign body of left middle finger without damage to nail, initial encounter (principal); W26.0XXA Contact with knife, initial encounter; Z23 Encounter for immunization
CPT/HCPCS: 12001; 90471; 90715

== ENCOUNTER 2025-02-15 12:19 | Emergency (ER) | payer MEDICAID, SELFPAY ==
--- NOTE | 2025-02-15 12:21 | ED.GENADUL_ITS ---
Discharge Plan Disposition Patient Disposition: Home Discharge Details Clinical Impression: Healing wound Primary Care Provider: MARCUS BARLOW ED Provider: Mary Mason Home Meds and New Rx's Prescriptions: No Action levomefolate calcium [L-Methylfolate] 15 mg tablet 15 mg PO DAILY ascorbate calcium (vitamin C) 500 mg tablet 500 mg PO DAILY cholecalciferol (vitamin D3) 25 mcg (1,000 unit) capsule 25 mcg PO DAILY Vyvanse 30 mg capsule 30 mg PO DAILY Patient Comments: 04/06/22- pt reports taking around lunch Vyvanse 40 mg capsule 40 mg PO QAM Patient Comments: 08/19/22- pt takes 30 mg po at lunch and 40 mg po in the am nicotinamide 1 tspn sublingual .COMPLEX Rx Instructions: 1 tspn sublingually; 3 times per week. Discharge Instructions Additional Instructions: Please keep your finger clean and dry. Continue to wash hands regularly with soap and water. You may use a bandage to protect the delicate skin as it is healing. May apply a thin layer of triple antibiotic ointment. Warm water soaks may also be helpful. Continue to keep an eye out for signs of infection such as redness, swelling, pus drainage, increasing pain, redness, numbness. If you notice any of these, please seek care as it may indicate need for antibiotics. Referrals: MARCUS BARLOW MD [Primary Care Provider] - Discharge Data Discharge Date/Time-TO BE ENTERED AT DEPARTURE: 02/15/25 12:44 HPI General Date/Time Provider Initiated Documentation: 02/15/25 12:20 . HPI Narrative: Emeli is a 44year old female who presents to the emergency department today for suture removal. She reports that she cut her left middle finger with a knife while cutting onions. 2 sutures were placed on 02/05. She has been caring for wound well, denies signs of infection. Full painless range of motion of finger. No drainage from wound. Denies contributory significant past medical history Physical exam reassuring. Well-approximated laceration noted to distal portion of left middle finger. No surrounding erythema, warmth, drainage, crusting, or pain with palpation. Full painless range of motion to fingers and wrist. No swelling 2 sutures intact, these were removed using suture removal kit. Patient tolerated procedure well. No bleeding or drainage. History and presentation consistent with well-healing laceration. As there are no signs of infection, no further interventions indicated. Recommended close monitoring for signs of infection and wound care. Reviewed discharge instructions with patient, including symptomatic management and red flags indicating need for return to emergency care Related Data Home Medications ?Medication ?Instructions ?Recorded ?Confirmed levomefolate calcium 15 mg tablet 15 mg PO DAILY 01/15/21 02/15/25 (L-Methylfolate) ascorbate calcium (vitamin C) 500 500 mg PO DAILY 04/06/22 02/15/25 mg tablet cholecalciferol (vitamin D3) 25 25 mcg PO DAILY 04/06/22 02/15/25 mcg (1,000 unit) capsule lisdexamfetamine 30 mg capsule 30 mg PO DAILY 04/06/22 02/15/25 (Vyvanse) lisdexamfetamine 40 mg capsule 40 mg PO QAM 08/19/22 02/15/25 (Vyvanse) nicotinamide 1 tspn sublingual .COMPLEX 10/21/22 02/15/25 Allergies Allergy/AdvReac Type Severity Reaction Status Date / Time amoxicillin Allergy Other (See Unverified 02/15/25 12:29 Comment) cefdinir Allergy Other (See Unverified 02/15/25 12:29 Comment) gluten Allergy Hives Uncoded 02/15/25 12:29 honey bee Allergy Hives Uncoded 02/15/25 12:29 General VISH: 4 Exam Const General: cooperative, healthy appearing, comfortable and no acute distress Nutritional Appearance: average body habitus Resp Effort & Inspection: normal respiratory effort and able to speak in complete sentences Skin General skin exam: no rashes or lesions noted Trauma: laceration left distal 3rd finger linear (Healing well, no bleeding or signs of infection) Neuro General: patient alert, patient oriented x3, tone normal and no focal motor deficits Motor: muscle tone normal throughout and strength 5/5 throughout Sensory Exam: no sensory deficits noted Extrem Left upper extremity: normal to inspection, wrist Details: normal to inspection and hand Details: normal capillary refill, neuromotor exam normal, neurosensory exam normal and normal ROM of fingers; no tenderness, no unusual warmth, no swelling and no foreign bodies Medical Decision Making Quality:SDOH Health Related Social Needs: No Data to Display PFSH All Active Problems (Updated 02/15/25 @ 12:23 by Mary Pisano Healing wound (Acute) Finger laceration (Acute) Breast lump (Acute) Benign polyp of duodenum (Acute) Varicose vein of leg (Acute) 03/2009. 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 Nl pap since. Hx of section Family History Self Family history of Peutz-Jeghers syndrome Son Family history of Peutz-Jeghers syndrome Son Family history of Peutz-Jeghers syndrome Sister Family history of Peutz-Jeghers syndrome Thyroid cancer Thymus cancer Uterine cervix cancer Father , Lung cancer. Never smoked. Family history of Peutz-Jeghers syndrome Family hx-testicular malignancy Testicular dysplasia cancer Sister Melanoma Paternal Grandmother Pancreatic cancer Uterine cervix cancer Brother Family history of Peutz-Jeghers syndrome Sister Family history of Peutz-Jeghers syndrome Basal cell carcinoma of skin Mother Squamous cell skin cancer Depression Paternal Cousin Family history of Peutz-Jeghers syndrome Colon polyps Social History Smoking/Tobacco Use Status: Never Quit status: quit date established Smoking risk assessment performed?: Yes Alcohol Intake: current Alcohol Intake frequency: 0-2 drinks per day Drug use: Never Substance use type: does not use Household members: children and other Details: legally . 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 Female Reproductive History Menstrual control method: progestin IUCD History History 2 Para 2 Hx # Term Pregnancies Multiple births Hx # Pregnancies Ectopic pregnancies AB induced Hx Number of Living Children 2 AB spontaneous Past Pregnancies Del. Date GA/Weeks # Preg Succ Route Wgt Sex Labor Lgth Anesth esia Location [facility] 05/11/07 40 No Yes vaginal 3486.991 g Male [place] 12/25/12 37 No Yes 2948.35 g Male Delivery Date: 12/25/12 Last Updated by: Mckenzie Burrell MD Placenta previa and ?vasa previa. T uterine incision
[2025-02-15 12:27] VITALS: BP 108/69; PULSE 88; RESP 18; TEMP 36.8; O2SAT 96
== END 2025-02-15 12:44 | disposition home or self-care (01) ==
LOC: ER 12:24
PROVIDERS: Emergency Provider Nurse Practitioner Family; PCP Student in an Organized Health Care Education/Training Program
DX: S61.213D Laceration without foreign body of left middle finger without damage to nail, subsequent encounter (principal); X58.XXXD Exposure to other specified factors, subsequent encounter

== ENCOUNTER 2025-03-11 09:52 | Outpatient (REF) | payer MEDICAID, SELFPAY ==
[2025-03-12 12:31] LABS: Chlamydia Result Negative (Negative); GC Result Negative (Negative)
== END 2025-03-11 09:53 | disposition home or self-care (01) ==
LOC: LBN 09:52
PROVIDERS: PCP Student in an Organized Health Care Education/Training Program; Visit Provider Obstetrics & Gynecology
DX: R30.0 Dysuria (principal); N89.8 Other specified noninflammatory disorders of vagina
CPT/HCPCS: 87077; 87491; 87591; 87086; 87186; 87480; 87510; 87660

== ENCOUNTER 2025-03-13 07:59 | Outpatient (CLI) | payer MEDICAID, SELFPAY ==
[2025-03-13 09:11] LABS: ALT 22 U/L (14-59); AST 14 U/L (15-37); Alkaline Phosphatase 51 U/L (46-116); Bilirubin, Direct 0.1 mg/dL (0.0-0.2); Bilirubin, Total 0.5 mg/dL (0.2-1.0); Total Protein 6.9 g/dL (6.4-8.2)
== END 2025-03-13 08:00 | disposition home or self-care (01) ==
LOC: LBO 07:59
PROVIDERS: PCP Student in an Organized Health Care Education/Training Program; Visit Provider Internal Medicine Medical Oncology
DX: Q85.89 Other phakomatoses, not elsewhere classified (principal); Z15.89 Genetic susceptibility to other disease; Z15.01 Genetic susceptibility to malignant neoplasm of breast; Z15.09 Genetic susceptibility to other malignant neoplasm
CPT/HCPCS: 36415; 80076

== ENCOUNTER 2025-04-12 11:20 | Outpatient (REF) | payer MEDICAID, SELFPAY | END 2025-04-12 11:21 | disposition home or self-care (01) | LOC: LBN 11:20 | PROVIDERS: PCP Student in an Organized Health Care Education/Training Program; Visit Provider Obstetrics & Gynecology | DX: R30.0 Dysuria (principal) | CPT/HCPCS: 87086 ==

== ENCOUNTER 2025-05-14 02:15 | Outpatient (CLI) | payer MEDICAID, SELFPAY ==
--- NOTE | 2025-05-14 | DI.US_ITS ---
APPROVED REPORT EXAM: Comprehensive 2D, Doppler, and color-flow Echocardiogram Patient Location: Out-Patient Returned Goods Receiving Clerk: Jackie Zendejas RDCS (AE) Indications: Systolic murmur Other Information Study Quality: Fair. Technically limited study due to body habitus. Conclusion Normal left ventricular wall thickness and chamber size. Ejection fraction is 55 to 60%. Wall motion is normal Normal right ventricular size and function Both atria are normal in size There is no structural or hemodynamically significant valvular disease Normal estimated right ventricular systolic pressure 23 mmHg Wall motion Left Ventricle The left ventricle is normal size. The left ventricular systolic function is normal. The left ventricular ejection fraction is within the normal range. There is normal left ventricular wall thickness. There is normal LV segmental wall motion. There is no ventricular septal defect visualized. LVEF is 56%. Right Ventricle Right ventricle is grossly normal in size. Right ventricular systolic function is grossly normal. Atria The left atrium size is normal. The right atrium size is normal. The interatrial septum is intact with no evidence for an atrial septal defect. Aortic Valve The aortic valve is normal in structure. Aortic valve is trileaflet. There is no aortic valvular stenosis. No aortic regurgitation is present. Mitral Valve The mitral valve is normal in structure. No evidence of mitral valve stenosis. Trace mitral regurgitation. Tricuspid Valve The tricuspid valve is normal in structure. There is no tricuspid valve stenosis. Trace tricuspid regurgitation. The RVSP is 23.1mmHg. Pulmonic Valve The pulmonary valve is normal in structure. There is no pulmonic valvular stenosis. There is no pulmonic valvular regurgitation. Great Vessels The aortic root is normal in size. Ascending aorta is not well visualized. Aortic arch is normal in caliber. IVC is normal in size and collapses >50% with inspiration. Pericardium There is no pericardial effusion. 2D Dimensions IVSD d PLAX 0.75 cm F: 0.6-1.0 Ao Root d 2.75 cm F: 2.7 - 3.3 LVPW d PLAX 0.74 cm F: 0.6 - 1.0 LVID d PLAX 4.62 cm F: 3.8 - 5.2 LVDs 3.30 cm F: 2.2 - 3.5 LV EF Teichholz 55.3 % FS 28.67 % LV EDV (Teich) 98.5 mL LV ESV (Teich) 44.1 mL M-Mode TAPSE 2.37 cm (M/F) >1.7 Auto EF LV EDV A4C 114.6 mL LV EDV A2C 114.5 mL LV EDV BP 117.7 mL LV ESV A4C 52.2 mL LV ESV A2C 48.4 mL LV ESV BP 51.9 mL LVEF(%) A4C 54.4 % LVEF(%) A2C 57.8 % LVEF(%) BP 55.9 % LV SV A4C 62.4 ml LV SV A2C 66.2 ml LV SV BP 65.8 ml LV CO A4C 4.3 L/min LV CO A2C 4.6 L/min LV CO BP 4.4 L/min HR A4C 68.84 BPM HR A2C 69.10 BPM LV EDV Index (BP) LV Diastology MV E' medial 0.110 (>0.07 m/s) MV E Vmax 0.80 (0.4-1.3 m/s) MV E/E' MED 7.29 (<14) MV A Vmax 0.70 (0.4-1.3 m/s) MV E' lateral 0.170 (>0.1 m/s) E/A Ratio 1.1 MV E/E' LAT 4.72 (<14) MV E' Average 0.140 m/s MV E/E'(average) 5.73 Aortic Valve AoV Vmax 1.50 m/s LVOT Vmax 1.04 m/s AoV Peak Grad 9.0 mmHg LVOT Peak Grad 4.3 mmHg AoV Area (Vmax) 1.91 cm2 LVOT VTI 0.219 m AoV VTI 0.325 m LVOT Mean Grad 2.3 mmHg AoV Mean Mert. 1.04 m/s LVOT SV 60.24 mL AoV Mean Grad 4.9 mmHg LVOT Diam s 1.85 cm AoV Area (VTI) 1.86 cm2 AV Regurg Peak Gr. 8.95 mmHg Velocity Ratio 0.69 Mitral Valve MV DT 255 (160-240 msec) MV Vmax TIPS 0.89 m/s MV Mean Grad 1.3 (<2mmHg) MV VTI 0.269 m Pulmonary Valve PV Vmax 0.94 (0.5-1.5 m/s) RVOT Vmax 0.81 m/s PV Peak Grad 3.5 mmHg RVOT Peak Gr. 2.6 mmHg PV Mean Mert 0.62 m/s RVOT VTI 0.188 m PV Mean Grad 1.9 mmHg RVOT Mean Gr. 1.3 mmHg Tricuspid Valve RA Pressure 3.00 mmHg TR Vmax 2.24 m/s TV S' 0.14 m/s TR Peak Grad 20.0 mmHg RVSP (TR) 23.1 mmHg
== END 2025-05-14 02:35 ==
LOC: DI 02:16
PROVIDERS: PCP Student in an Organized Health Care Education/Training Program; Visit Provider Internal Medicine Cardiovascular Disease
DX: R01.1 Cardiac murmur, unspecified (principal)
CPT/HCPCS: 93306

== ENCOUNTER 2025-06-04 01:31 | Outpatient (CLI) | payer MEDICAID, SELFPAY ==
[2025-06-04 10:34] LABS: Abs Immature Grans 0.01 10^3/uL (0.0-0.06); HCT 36.3 % (36.0-46.0); HGB 12.0 g/dL (11.2-15.7); Immature Grans % 0.2 %; MCH 30.0 pg (27.0-33.0); MCHC 33.1 % (32.0-36.0); MCV 91 fL (80-95); MPV 10.3 fL (8.0-11.0); Platelet Count 240 10^3/uL (130-400); RBC 4.00 10^6/uL (3.93-5.22); RDW 13.2 % (11.7-14.6); RDW-SD 44.6 fL; WBC 5.48 10^3/uL (4.4-10.8)
[2025-06-04 11:41] LABS: Iron 122 ug/dL (50-170); Total Iron Binding Capacity 379 ug/dL (250-450); Transferrin Sat 32 % (15-50)
[2025-06-04 12:00] LABS: Anion Gap 6.7 mmol/L (3-11); BUN 14 mg/dL (7-18); CO2 30.3 mmol/L (21.0-32.0); Calcium 9.0 mg/dL (8.5-10.1); Calculated LDL 121 mg/dL (<100); Chloride 105 mmol/L (98-107); Cholesterol 195 mg/dL (<200); Estimated GFR 107.95 (mL/min/1.73m2); Ferritin 42 ng/mL (8-252); Glucose 64 mg/dL (74-106); HDL Cholesterol 64 mg/dL (>or=50); Potassium 4.1 mmol/L (3.5-5.1); Sodium 142 mmol/L (136-145); TSH (W/Ref FT4) 1.51 uIU/mL (0.36-3.74); Triglyceride 51 mg/dL (<150); Vitamin D 25 Total 33 ng/mL (30-100)
== END 2025-06-04 01:32 | disposition home or self-care (01) ==
LOC: LBO 06-05 01:31
PROVIDERS: PCP Student in an Organized Health Care Education/Training Program; Visit Provider Student in an Organized Health Care Education/Training Program
DX: F90.2 Attention-deficit hyperactivity disorder, combined type (principal); Z00.00 Encounter for general adult medical examination without abnormal findings; R53.83 Other fatigue
CPT/HCPCS: 36415; 80048; 80061; 82306; 82728; 83540; 83550; 84443; 85025

== ENCOUNTER 2025-06-04 03:32 | Outpatient (CLI) | payer MEDICAID, SELFPAY ==
--- NOTE | 2025-06-04 05:30 | DI.US_ITS ---
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 TECHNIQUE: Transabdominal and transvaginal pelvic ultrasound was performed using standard protocol. COMPARISON: US US PELVIS TRANSVAGINAL from 06/19/2024 FINDINGS: UTERUS: The patient is status post hysterectomy. OVARIES: The ovaries could not be visualized due to overlying bowel. There is poor visualization of the adnexal tissues due to overlying bowel. CUL-DE-SAC: Free fluid: None. Other: None. IMPRESSION: 1. Status post hysterectomy. 2. The ovaries could not be visualized due to overlying bowel. DATA REPOSITORY:
== END 2025-06-04 03:52 ==
LOC: DI 03:32
PROVIDERS: PCP Student in an Organized Health Care Education/Training Program; Visit Provider Obstetrics & Gynecology
DX: Q85.89 Other phakomatoses, not elsewhere classified (principal)
CPT/HCPCS: 76830; 76856

== ENCOUNTER 2025-06-18 14:14 | Outpatient (REF) | payer MEDICAID, SELFPAY ==
--- NOTE | 2025-06-18 11:40 | PAPFT_PTH ---
PATIENT: Emeli Ness LOC: [facility] U#:[id number] AGE/SX: 44/F ROOM: RE06/18/[address]: Mckenzie Burrell MD : [id number] BED: DIS: 06/18/2025 SPEC #: [id number] RECD: 06/18/25 18:21 STATUS: WALTER RELuis Alfredo #: [id number] BROCK: 06/18/25 11:[address]: Mckenzie Burrell DEPT: [facility] Cytology RECD BY: Deisy Nguyen ENTERED: 06/18/25 18:21 SP TYPE: PAPFT OTHR DR: MARUCS JAVIER MD Tissues: 1 - CX/ENDOCX FOR PAP SMEARS Procedures: PAP THIN PREP/[facility] Screening HPV DNA PROBE Comments: [id number] (HPV 16 & 18/45)
== END 2025-06-18 14:15 | disposition home or self-care (01) ==
LOC: LBN 14:14
PROVIDERS: PCP Student in an Organized Health Care Education/Training Program; Visit Provider Obstetrics & Gynecology
DX: Z12.4 Encounter for screening for malignant neoplasm of cervix (principal)
CPT/HCPCS: 88142; 87624